=== PATIENT | male | born 1970 | race Caucasian/White ===

== ENCOUNTER 2018-08-24 15:29 | Emergency (ER) | payer SELFPAY ==
[2018-08-24 15:36] VITALS: BP 120/88; PULSE 98; RESP 20; TEMP 36.4; O2SAT 98
[2018-08-24] MEDS: TET,DIPH,PERTUSS(ACELL),VAC/PF 0.5 ML SYRINGE IM (16:03)
--- NOTE | 2018-08-24 17:01 | PC.NURSE ---
Assisted provider Trace with wound care. wound cleansed with normal saline. Trace applied glue and steri strips. Pt informed he needs to keep hand open while glue dries.
--- NOTE | 2018-08-24 17:13 | ED_ITS ---
HPI - Wound/Laceration <MAXIMINO Simmons - Last Filed: 08/24/18 18:10> General Chief Complaint: Wound/Laceration Stated Complaint: CUT RIGHT PALM Time Seen by Provider: 08/24/18 15:45 Source: patient Mode of arrival: ambulatory Limitations: no limitations History of Present Illness HPI narrative: Patient presents with laceration to right palm. States he cut it on a piece of metal. Is unsure when his last tetanus was. States metals clean and denies foreign body possibility. States that he can move his hand fully and no decreased range of motion. Related Data Home Medications Medication Instructions Recorded Confirmed No Known Home Medications 08/24/18 08/24/18 Allergies Allergy/AdvReac Type Severity Reaction Status Date / Time No Known Drug Allergies Allergy Verified 08/24/18 15:39 Review of Systems <MAXIMINO Simmons - Last Filed: 08/24/18 18:10> Review of Systems GENERAL: Denies chills, fatigue, malaise, fever, sweats. HEENT: Denies sinus pain, ear pain, sore throat, difficulty swallowing, dizziness. RESPIRATORY: Denies dyspnea, cough, wheezing, hemoptysis, sputum. CARDIOVASCULAR: Denies chest pain, palpitations, orthopnea, edema, GASTROINTESTINAL: Denies nausea, vomiting, abdominal pain, diarrhea, constipation, melena. : Denies dysuria, frequency, incontinence, hematuria, urinary retention. MUSCULOSKELETAL: see HPI SKIN: see HPI NEUROLOGIC: Denies weakness, headache, numbness, change in speech, confusion, seizures, incoordination. PSYCHIATRIC: No concerning psychosocial issues. 12 point review of systems is negative except for those stated above Exam <MAXIMINO Simmons - Last Filed: 08/24/18 18:10> Narrative Exam Narrative: GENERAL: This is a well-nourished, well-developed patient, In mild distress, HEAD: Atraumatic. Normocephalic. No temporal or scalp tenderness. EYES: Pupils equal round and reactive. Extraocular motions intact. No scleral icterus. No injection or drainage. ENT: Nose without bleeding, purulent drainage or septal hematoma. Throat without erythema, tonsillar hypertrophy or exudate. Uvula midline. Airway patent. NECK: Trachea midline. No JVD or lymphadenopathy. Supple, nontender, no meningeal signs. CARDIOVASCULAR: Regular rate and rhythm without murmurs, gallops, or rubs. RESPIRATORY: Clear to auscultation. Breath sounds equal bilaterally. No wheezes , rales, or rhonchi. GASTROINTESTINAL: Abdomen soft, non-tender, nondistended. No hepato-splenomegaly , or palpable masses. No guarding. EXTREMITIES: Right hand has full range of motion and strength. Capillary refill less than 2 sec all fingers right hand. Positive radial pulse right hand. BACK: Nontender without deformity or crepitance. No flank tenderness. NEURO: AOx3. SKIN: 3.5 cm laceration through dermis right palmar surface. No tendon or muscular involvement. Laceration is well approximated. No obvious foreign bodies. start since on her palm and extends towards webbing of thumb surface. Initial Vital Signs Initial Vital Signs: Vital Signs Temperature 97.6 F 08/24/18 15:36 Pulse Rate 98 H 08/24/18 15:36 Respiratory Rate 20 08/24/18 15:36 Blood Pressure 120/88 08/24/18 15:36 Pulse Oximetry 98 08/24/18 15:36 <Tamar Jackson DO - Last Filed: 08/25/18 07:57> Initial Vital Signs Initial Vital Signs: Vital Signs Temperature 97.6 F 08/24/18 15:36 Pulse Rate 98 H 08/24/18 15:36 Respiratory Rate 20 08/24/18 15:36 Blood Pressure 120/88 08/24/18 15:36 Pulse Oximetry 98 08/24/18 15:36 Procedures <OBIE Simmons - Last Filed: 08/24/18 18:10> Laceration Repair Laceration 1: Site: hand Side (If applicable): right Size (cm): 3.5 Description: linear Depth: simple, single layer Local Anesthetic: lidocaine 2% Amount of anesthesia used (mL): 3 Pre-repair: wound explored, irrigated extensively and deep structures intact Skin layer closed with: other (dermabond and steri strip x 3) Course <OBIE Simmons - Last Filed: 08/24/18 18:10> Course Narrative: I discussed at length with the patient that I thought he needed sutures. We prepared to suture his hand and I soaked his hand in Hibiclens and water. However when I started attempting to numb is laceration, the patient kept moving his right hand. I instructed the patient that he needed to hold his hands still so that I could numb and suture it. I discussed the risk of needle stick, the risk of a poor closure of the wound. However the patient became increasingly agitated and mentioned trying to not hit me. After this I had nursing staff director government me as I closed his wound with Dermabond and Steri-Strips. The patient mentioned taking a nurse home was he was a good cook as well as stating looks like you brought people in to hold me down. I also washed out his wound with sterile water prior to closure. He did receive a tetanus. Orders Ordered: Discontinued Medications Diphtheria/Tetanus/Acell Pertussis (Adacel) 0.5 ml IM .ONCE ONE Stop: 08/24/18 15:53 Last Admin: 08/24/18 16:03 Dose: 0.5 ml Vital Signs - 8 hr 08/24/18 15:36 Temperature 97.6 F Pulse Rate 98 H Respiratory Rate 20 Blood Pressure 120/88 Pulse Oximetry 98 <Tamar Jackson DO - Last Filed: 08/25/18 07:57> Orders Ordered: Discontinued Medications Diphtheria/Tetanus/Acell Pertussis (Adacel) 0.5 ml IM .ONCE ONE Stop: 08/24/18 15:53 Last Admin: 08/24/18 16:03 Dose: 0.5 ml Vital Signs - 8 hr 08/24/18 15:36 Temperature 97.6 F Pulse Rate 98 H Respiratory Rate 20 Blood Pressure 120/88 Pulse Oximetry 98 MDM - Wound/Laceration <OBIE Simmons - Last Filed: 08/24/18 18:10> Differential Diagnosis Differential diagnosis: Likely laceration MDM Narrative Medical decision making narrative: patient presented with chief complaint of a laceration. Laceration was through dermis and did not involve any tendon or muscle tissue.His tetanus was updated. A suture closure would of been advantageous for his laceration, but given the patient's inability to hold still combined with his mentioning of hitting staff I opted for a Dermabond and suture closure. I discussed at length monitoring for signs and symptoms of infection and follow up with primary care for new or worsening symptoms. Discharge Plan Departure Patient Disposition: Home Clinical Impression: Laceration of hand Discharge Date/Time: 08/24/18 17:39 Interventions: ED Discharge Assessment Last Done: 08/24/18 17:37 Instructions: DI for Laceration Repair Steri-Strips, DI for Laceration Repair With Dermabond Activity Restrictions/Additional Instructions: Please monitor your cut for signs and symptoms of infection including redness , pus and fever. Please follow-up if any of those occur. Please follow-up with your primary care provider if needed. We updated her tetanus today. Please rest your left hand as best you can to not reopen that laceration. We have provided with a splint to help support this rest. Prescriptions: No Action No Known Home Medications RF: 0 Referrals: Mahamed Paz MD [Physician] - <Tamar Jackson DO - Last Filed: 08/25/18 07:57> Cosign ED Attending Efraínature Attestation: I was immediately available in the department for consultation. Documentation has been reviewed. I agree with assessment and plan.
--- NOTE | 2018-08-28 17:44 | PC.NURSE ---
Attempted follow up call,wrong number
== END 2018-08-24 17:39 | disposition home or self-care (01) ==
PROVIDERS: Emergency Provider Nurse Practitioner Family
DX: S61.411A Laceration without foreign body of right hand, initial encounter (principal); W26.8XXA Contact with other sharp object(s), not elsewhere classified, initial encounter
CPT/HCPCS: 90471; 99283; 90715